=== PATIENT | male | born 1950 | race Native Hawaiian/Other Pacific Islander ===

== ENCOUNTER 2016-11-26 09:25 | Outpatient (CLI) | payer OTHER ==
[~2016-11-26 09:25] MED LIST: ENOX80IN SC; PACERONE200 MG PO; TERA1CAP PO; WARFARIN5 MG PO
== END 2016-11-26 10:30 | disposition home or self-care (01) ==
LOC: LABW 09:25
PROVIDERS: Nurse Practitioner Adult Health
DX: E78.2 Mixed hyperlipidemia (principal); Z79.899 Other long term (current) drug therapy; Z51.81 Encounter for therapeutic drug level monitoring; I48.0 Paroxysmal atrial fibrillation
CPT/HCPCS: 36415; 80061; 80076; 84436; 84443; 84479

== ENCOUNTER 2017-08-07 17:27 | Outpatient (CLI) | payer OTHER ==
[2017-08-08] MEDS ORDERED: ASPIRIN325 M1 (09:24)
[2017-08-08] MEDS ORDERED: AMIODARONE HCL100 MG PO (09:25)
[2017-08-08] MEDS ORDERED: CEPH500C20 PO (09:31)
[2017-08-08] MEDS ORDERED: MOBIC7.5 M1 PO (09:32)
[2017-08-08] MEDS ORDERED: PRED20TA27 PO (09:32)
[2017-08-08] MEDS ORDERED: FINASTERIDE5 MG PO (09:34)
[2017-08-09] MEDS ORDERED: PACERONE200 MG OR (09:24)
== END 2017-08-07 17:43 | disposition short-term general hospital (02) ==
LOC: AMB 17:27
DX: R53.1 Weakness (principal); R05 Cough; R50.9 Fever, unspecified
CPT/HCPCS: A0425; A0427

== ENCOUNTER 2017-08-07 17:46 | Inpatient (IN) | payer OTHER ==
[~2017-08-07] VITALS: Ht 175.3 cm; Wt 73.7 kg
[2017-08-07 19:38] VITALS: BP 140/68; TEMP 103.2
[2017-08-07 20:51] LABS: PLATELET COUNT 162 K/uL (142-355)
[2017-08-07 20:58] LABS: POTASSIUM 3.4 mmol/L (3.6-5.2)
[2017-08-07 21:08] LABS: PARTIAL THROMBOPLASTIN TIME 25.4 SECONDS (24.5-33.6)
[2017-08-07 21:22] VITALS: BP 123/55; TEMP 102
[2017-08-07 23:00] VITALS: BP 100/54; TEMP 98.9
[2017-08-07 23:56] VITALS: BP 100/54; TEMP 98.9; Ht 175.3 cm; Wt 73.7 kg
[2017-08-08 04:47] VITALS: BP 117/47; TEMP 97.9
[2017-08-08 08:00] VITALS: BP 109/54; TEMP 98.4
[2017-08-08 08:23] LABS: PLATELET COUNT 158 K/uL (142-355)
[2017-08-08 08:44] LABS: POTASSIUM 3.5 mmol/L (3.6-5.2)
[2017-08-08] MEDS ORDERED: ASPIRIN325 M1 ×2 (09:24)
[2017-08-08] MEDS ORDERED: AMIODARONE HCL100 MG PO ×2 (09:25)
[2017-08-08] MEDS ORDERED: CEPH500C20 PO ×2 (09:31)
[2017-08-08] MEDS ORDERED: MOBIC7.5 M1 PO ×2 (09:32)
[2017-08-08] MEDS ORDERED: PRED20TA27 PO ×2 (09:32)
[2017-08-08] MEDS ORDERED: FINASTERIDE5 MG PO ×2 (09:34)
[2017-08-08 12:00] VITALS: BP 114/56; TEMP 98.8
[2017-08-08 16:00] VITALS: BP 121/55; TEMP 98.9
[2017-08-08 20:05] VITALS: BP 146/80; TEMP 99.1
[2017-08-09 00:20] VITALS: BP 146/82; TEMP 98.8
[2017-08-09 04:00] VITALS: BP 164/66; TEMP 99
[2017-08-09 05:21] LABS: PLATELET COUNT 160 K/uL (142-355)
[2017-08-09 05:25] LABS: POTASSIUM 3.4 mmol/L (3.6-5.2)
[2017-08-09 08:00] VITALS: BP 156/75; TEMP 98.5
[2017-08-09] MEDS ORDERED: PACERONE200 MG OR ×2 (09:24)
[2017-08-09 12:00] VITALS: BP 134/78; TEMP 98.4
[2017-08-09 16:00] VITALS: BP 173/74; TEMP 98.7
[2017-08-09 19:53] VITALS: BP 151/78; TEMP 98.4
[2017-08-10] VITALS: BP 161/86; TEMP 98.2
[2017-08-10 04:00] VITALS: BP 144/86; TEMP 99.1
[2017-08-10 05:12] LABS: PLATELET COUNT 178 K/uL (142-355)
[2017-08-10 05:44] LABS: POTASSIUM 3.6 mmol/L (3.6-5.2)
[2017-08-10 08:00] VITALS: BP 157/84; TEMP 97.5
[2017-08-10 12:00] VITALS: BP 149/86; TEMP 98.3
[2017-08-10 16:00] VITALS: BP 168/79; TEMP 98
[2017-08-10 20:00] VITALS: BP 144/76; TEMP 98.9
[2017-08-11] VITALS: BP 124/68; TEMP 99.7
[2017-08-11 04:00] VITALS: BP 169/72; TEMP 100.1
[2017-08-11 06:21] LABS: POTASSIUM 3.8 mmol/L (3.6-5.2)
[2017-08-11 06:33] LABS: PLATELET COUNT 187 K/uL (142-355)
[2017-08-11 08:08] VITALS: BP 121/67; TEMP 99.1
[2017-08-11 12:00] VITALS: BP 129/78; TEMP 99.3
[2017-08-11 16:00] VITALS: BP 156/63; TEMP 98.9
[2017-08-11 20:00] VITALS: BP 137/67; TEMP 99.5
[2017-08-12] VITALS: BP 1563/61; TEMP 99.6
[2017-08-12 04:00] VITALS: BP 165/79; TEMP 99.4
[2017-08-12 06:04] LABS: POTASSIUM 3.5 mmol/L (3.6-5.2)
[2017-08-12 06:12] LABS: PLATELET COUNT 247 K/uL (142-355)
[2017-08-12 08:00] VITALS: BP 140/84; TEMP 98.3
[2017-08-12 12:22] VITALS: BP 133/77; TEMP 98.4
[2017-08-12 16:00] VITALS: BP 148/75; TEMP 100.6
[2017-08-12 20:00] VITALS: BP 145/75; TEMP 99.4
[2017-08-13] VITALS: BP 151/63; TEMP 99.7
[2017-08-13 04:00] VITALS: BP 153/63; TEMP 99.1
[2017-08-13 05:28] LABS: PLATELET COUNT 231 K/uL (142-355)
[2017-08-13 05:50] LABS: POTASSIUM 2.6 mmol/L (3.6-5.2)
[2017-08-13 08:00] VITALS: BP 152/68; TEMP 98
[2017-08-13 12:00] VITALS: BP 151/65; TEMP 98.1
[2017-08-13 16:00] VITALS: BP 170/71; TEMP 99.8
[2017-08-13 20:00] VITALS: BP 124/73; TEMP 100.1
[2017-08-14] VITALS: BP 158/81; TEMP 100.1
[2017-08-14 04:00] VITALS: BP 141/70; TEMP 98.8
[2017-08-14 08:00] VITALS: BP 144/71; TEMP 99
[2017-08-14 11:18] LABS: PLATELET COUNT 248 K/uL (142-355)
[2017-08-14 12:00] VITALS: BP 128/82; TEMP 98.8
[2017-08-14 12:28] LABS: POTASSIUM 3.3 mmol/L (3.6-5.2)
[2017-08-14 16:00] VITALS: BP 120/61; TEMP 97.8
[2017-08-14 20:19] VITALS: BP 133/61; TEMP 99.9
[2017-08-15 00:15] VITALS: BP 151/70; TEMP 98.7
[2017-08-15 04:00] VITALS: BP 161/67; TEMP 99.2
[2017-08-15 05:29] LABS: PLATELET COUNT 270 K/uL (142-355)
[2017-08-15 05:44] LABS: POTASSIUM 2.8 mmol/L (3.6-5.2)
[2017-08-15 08:00] VITALS: BP 158/75; TEMP 99.6
== END 2017-08-15 12:25 | disposition home or self-care (01) | DRG 193 ==
LOC: ED 17:46 → MED/SURG 22:32
PROVIDERS: Emergency Medicine; Internal Medicine; Specialist; ADMIT Family Medicine
DX: J18.8 Other pneumonia, unspecified organism (principal); J81.0 Acute pulmonary edema; K56.690 Other partial intestinal obstruction; E83.42 Hypomagnesemia; R09.02 Hypoxemia; D72.828 Other elevated white blood cell count; K59.09 Other constipation; E87.6 Hypokalemia
CPT/HCPCS: 36415; 36600; 80053; 80200; 81000; 82805; 83605; 83735; 84100; 85027; 85610; 85730; 87040; 87070; 87205; 87804; 93005; 94640; 94664; 94760; 96361; 96366; 96367; 96372; 96374; 99284; J0696; J1650; J1885; J1940; J2405; J2543; J3260; J3480; J3490; Q9963

== ENCOUNTER 2017-08-17 15:32 | Outpatient (CLI) | payer OTHER ==
[~2017-08-17 15:32] MED LIST changes: +AMIODARONE HCL100 MG PO; +ASPIRIN325 M1; +CEPH500C20 PO; +FINASTERIDE5 MG PO; +MOBIC7.5 M1 PO; +PACERONE200 MG OR; +PRED20TA27 PO
== END 2017-08-17 20:09 | disposition home or self-care (01) ==
LOC: US 15:32
DX: R60.0 Localized edema (principal); M79.672 Pain in left foot

== ENCOUNTER 2017-08-18 10:51 | Outpatient (CLI) | payer OTHER | END 2017-08-18 19:48 | disposition home or self-care (01) | LOC: US 10:51 | DX: R60.0 Localized edema (principal); M79.672 Pain in left foot ==

== ENCOUNTER 2017-08-20 15:14 | Emergency (ER) | payer OTHER ==
[~2017-08-20] VITALS: Ht 175.3 cm; Wt 73.5 kg
[2017-08-20 15:10] VITALS: BP 149/79; TEMP 98.1
== END 2017-08-20 16:20 | disposition home or self-care (01) ==
LOC: ED 15:14
PROC: 0T9B70Z Drainage of Bladder with Drainage Device, Via Natural or Artificial Opening (ICD-10-PCS; principal; 2017-08-20)
DX: R33.8 Other retention of urine (principal); N40.1 Benign prostatic hyperplasia with lower urinary tract symptoms
CPT/HCPCS: 51702; 99282

== ENCOUNTER 2018-04-02 10:55 | Outpatient (CLI) | payer OTHER | END 2018-04-02 19:34 | disposition home or self-care (01) | LOC: LABW 10:55 | DX: Z79.899 Other long term (current) drug therapy (principal) | CPT/HCPCS: 36415; 84436; 84443; 84479 ==

== ENCOUNTER 2018-09-14 09:14 | Outpatient (CLI) | payer OTHER | END 2018-09-14 22:58 | disposition home or self-care (01) | LOC: RESP 09:14 | DX: G62.9 Polyneuropathy, unspecified (principal); M25.552 Pain in left hip; M79.652 Pain in left thigh; G56.03 Carpal tunnel syndrome, bilateral upper limbs | CPT/HCPCS: 95861; 95910 ==

== ENCOUNTER 2019-12-26 09:28 | Outpatient (CLI) | payer OTHER | END 2019-12-26 21:07 | disposition home or self-care (01) | LOC: MRI 09:28 | DX: M54.2 Cervicalgia (principal); M79.622 Pain in left upper arm ==

== ENCOUNTER 2020-05-14 14:57 | Outpatient (CLI) | payer OTHER | END 2020-05-14 23:23 | disposition home or self-care (01) | LOC: RAD 14:57 | PROVIDERS: ATTEND Nurse Practitioner Family | DX: M25.561 Pain in right knee (principal); M25.562 Pain in left knee ==

== ENCOUNTER 2020-05-31 11:20 | Outpatient (CLI) | payer OTHER | END 2020-05-31 19:03 | disposition home or self-care (01) | LOC: RAD 11:20 | PROVIDERS: ATTEND Nurse Practitioner Family | DX: R13.19 Other dysphagia (principal) ==

== ENCOUNTER 2020-08-15 14:41 | Outpatient (CLI) | payer OTHER | END 2020-08-15 22:05 | disposition home or self-care (01) | LOC: RAD 14:41 | PROVIDERS: ATTEND Nurse Practitioner Family | DX: M25.512 Pain in left shoulder (principal); M79.602 Pain in left arm ==

== ENCOUNTER 2020-08-27 13:37 | Outpatient (CLI) | payer OTHER | END 2020-08-27 23:16 | disposition home or self-care (01) | LOC: RAD 13:37 | PROVIDERS: ATTEND Orthopaedic Surgery Orthopaedic Surgery of the Spine | DX: M25.512 Pain in left shoulder (principal) ==

== ENCOUNTER 2021-03-01 13:04 | Outpatient (CLI) | payer OTHER | END 2021-03-01 19:35 | disposition home or self-care (01) | LOC: US 13:04 | PROVIDERS: ATTEND Specialist | DX: I48.0 Paroxysmal atrial fibrillation (principal); R00.1 Bradycardia, unspecified; I65.23 Occlusion and stenosis of bilateral carotid arteries; I34.0 Nonrheumatic mitral (valve) insufficiency; Z86.79 Personal history of other diseases of the circulatory system; E11.9 Type 2 diabetes mellitus without complications | CPT/HCPCS: 93225 ==

== ENCOUNTER 2021-10-30 15:36 | Outpatient (CLI) | payer OTHER | END 2021-10-30 21:43 | disposition home or self-care (01) | LOC: US 15:36 | PROVIDERS: ATTEND Nurse Practitioner Family | DX: M25.50 Pain in unspecified joint (principal); M79.605 Pain in left leg; M79.652 Pain in left thigh; S86.119A Strain of other muscle(s) and tendon(s) of posterior muscle group at lower leg level, unspecified leg, initial encounter; S86.819A Strain of other muscle(s) and tendon(s) at lower leg level, unspecified leg, initial encounter; Y92.9 Unspecified place or not applicable ==

== ENCOUNTER 2021-11-04 14:53 | Outpatient (CLI) | payer OTHER | END 2021-11-04 19:06 | disposition home or self-care (01) | LOC: RAD 14:53 | PROVIDERS: ATTEND Nurse Practitioner Family | DX: M25.50 Pain in unspecified joint (principal); M79.605 Pain in left leg; M79.652 Pain in left thigh; S86.119A Strain of other muscle(s) and tendon(s) of posterior muscle group at lower leg level, unspecified leg, initial encounter; S86.819A Strain of other muscle(s) and tendon(s) at lower leg level, unspecified leg, initial encounter; Y92.9 Unspecified place or not applicable ==

== ENCOUNTER 2022-03-07 14:26 | Outpatient (CLI) | payer OTHER | END 2022-03-07 19:14 | disposition home or self-care (01) | LOC: CT 14:26 | PROVIDERS: ATTEND Specialist | DX: R31.9 Hematuria, unspecified (principal) ==